=== PATIENT | female | born 1955 | race Caucasian/White ===

== ENCOUNTER 2020-10-03 21:13 | Emergency (ER) | payer OTHER ==
[~2020-10-03] VITALS: Ht 162.6 cm; Wt 65.8 kg
[2020-10-03 21:30] VITALS: BP 138/69
--- NOTE | 2020-10-03 21:30 | NUR ---
to bed # 12 biba from home with c/o bodyaches since yesterday
[2020-10-03] MEDS ORDERED: KETOROLAC 30 MG/ML VIAL IM ONE (21:35)
[2020-10-03] MEDS ORDERED: HYDROcodone/APAP 5/325 MG 1 TAB TAB PO ONE (21:35)
--- NOTE | 2020-10-03 21:35 | NUR ---
medicated as per ermds order, tolerated well.
--- NOTE | 2020-10-03 22:15 | NUR ---
PT HAS HX OF RA ONLY TAKES OTC MEDS, LAST FEW DAYS THE PAIN HAS BECOME UNBEARABLE, UNABLE TO AMBULATE WITHOUT ASSITANCE. PT STATES ENTIRE BODY IS VERY PAINFUL. DENIES SOB, AFEBRILE. BED IN LOWEST POSITION, LOCKED AND SIDERAIL UP X 1. NKA HX - HTN, COPD, RA
--- NOTE | 2020-10-03 22:19 | NUR ---
PT STILL C/O 06/21 PAIN, MD BURGOS AWARE AND SPEAKING WITH PT
[2020-10-03] MEDS ORDERED: MORPHINE SULFATE 4 MG/ML SYR IM ONE (22:20)
--- NOTE | 2020-10-04 | NUR ---
Patient discharged with v/s stable. Written and verbal after care instructions given and explained. Patient alert, oriented and verbalized understanding of instructions. Ambulatory with steady gait. All questions addressed prior to discharge. ID band removed. Patient advised to follow up with PMD. Rx of norco and naprosyn given. Patient educated on indication of medication including possible reaction and side effects. Opportunity to ask questions provided and answered.
== END 2020-10-03 23:00 | disposition home or self-care (01) ==
LOC: MED 21:13
DX: M06.89 Other specified rheumatoid arthritis, multiple sites (principal); F17.210 Nicotine dependence, cigarettes, uncomplicated; Z71.6 Tobacco abuse counseling
CPT/HCPCS: 71045; 96372; 99284; J1885; J2270

== ENCOUNTER 2020-11-14 08:31 | Emergency (ER) | payer OTHER, MEDICAID ==
[~2020-11-14] VITALS: Ht 162.6 cm; Wt 75.7 kg
[2020-11-14 08:37] VITALS: BP 205/102
[2020-11-14] MEDS ORDERED: hydrALAZINE 20 MG/ML VIAL IVP ONE (08:45)
[2020-11-14] MEDS ORDERED: NACL 0.9% 1,000 ML IV SCH (08:45)
[2020-11-14] MEDS ORDERED: ONDANSETRON 4 MG/2 ML VIAL IVP ONE (08:45)
[2020-11-14] MEDS ORDERED: MORPHINE SULFATE 4 MG/ML SYR IVP ONE (08:45)
[2020-11-14 08:59] LABS: BASOPHILS # (AUTO) 0.1 K/uL (0.00-0.22); BASOPHILS % (AUTO) 1.5 % (0.0-2.0); EOSINOPHILS # (AUTO) 0.2 K/uL (0-0.4); EOSINOPHILS % (AUTO) 3.3 % (0.0-4.0); HEMATOCRIT 38.9 % (36-48); HEMOGLOBIN 12.8 g/dL (12.0-16.0); LYMPHOCYTES # (AUTO) 1.4 K/uL (2.5-16.5); LYMPHOCYTES % (AUTO) 21.7 % (20.5-51.1); MEAN CORPUSCULAR HEMOGLOBIN 29 pg (27-31); MEAN CORPUSCULAR HGB CONC 33 g/dL (33-37); MEAN CORPUSCULAR VOLUME 87.4 fL (80-94); MONOCYTES # (AUTO) 0.5 K/uL (0.8-1.0); MONOCYTES % (AUTO) 7.9 % (1.7-9.3); NEUTROPHILS # (AUTO) 4.3 K/uL (1.8-7.7); NEUTROPHILS % (AUTO) 65.6 % (42.2-75.2); PLATELET COUNT (AUTO) 279 K/uL (140-450); RED BLOOD CELL COUNT(AUTO) 4.45 MIL/uL (4.20-5.40); RED CELL DISTRIBUTION WIDTH 14.8 % (11.6-13.7); WHITE BLOOD COUNT (AUTO) 6.6 K/uL (4.8-10.8)
[2020-11-14 09:05] LABS: APPEARANCE,URINE CLEAR (CLEAR); BILIRUBIN,URINE NEGATIVE (NEGATIVE); BLOOD, URINE 2+ (NEGATIVE); COLOR,URINE YELLOW (YELLOW); LEUKOCYTE ESTERASE ,URINE NEGATIVE (NEGATIVE); NITRITE, URINE NEGATIVE (NEGATIVE); PH,URINE 6.5 (5.0-9.0); UGLUCOSE NEGATIVE (NEGATIVE)
[2020-11-14 09:16] LABS: ALBUMIN 3.5 g/dL (3.4-5.0); TOTAL BILIRUBIN 0.3 mg/dL (0.0-1.0)
[2020-11-14 09:30] LABS: RBC,URINE 11-20 (MOD) /HPF (0-5); WBC,URINE 0-5 /HPF (0-5)
[2020-11-14] MEDS ORDERED: ACET-9527 PO (10:01)
[2020-11-14] MEDS ORDERED: NAPR-1704 PO (10:01)
[2020-11-14] MEDS ORDERED: LISI1TAB45 PO (10:03)
[2020-11-14 10:10] VITALS: BP 165/72
== END 2020-11-14 10:10 | disposition home or self-care (01) ==
LOC: MED 08:31
DX: S32.019A Unspecified fracture of first lumbar vertebra, initial encounter for closed fracture (principal); R91.1 Solitary pulmonary nodule; I10 Essential (primary) hypertension; J44.9 Chronic obstructive pulmonary disease, unspecified; X58.XXXA Exposure to other specified factors, initial encounter; Y93.89 Activity, other specified; Y92.89 Other specified places as the place of occurrence of the external cause; Y99.8 Other external cause status
CPT/HCPCS: 36415; 74176; 80053; 81001; 83690; 85025; 96361; 96374; 96375; 99284; J0360; J2270; J2405; J7030

== ENCOUNTER 2020-11-19 10:02 | Emergency (ER) | payer OTHER, MEDICAID ==
[~2020-11-19] VITALS: Ht 165.1 cm; Wt 65.8 kg
[~2020-11-19 10:02] MED LIST: ACET-9527 PO; LISI1TAB45 PO; NAPR-1704 PO
[2020-11-19 10:10] VITALS: BP 169/81
--- NOTE | 2020-11-19 10:17 | NUR ---
65 Y/O F C/O PAINFUL BACK RASH THAT BEGAN ABOUT 5 DAYS AGO. DESCRIBES PAIN BURNING STINGING. DENIES N/V. RAISED RASH WITH SMALL PAPULES NOTED ON RIGHT SIDE OF BACK WITH THREE AFFECTED AREAS. SKIN INTACT. PATIENT STATES RASH IS ITCHY AND BURNING. HAS BEEN TAKING NORCO FOR BACK PAIN AND BACK RASH. PMH: RA, COPD, HTN NKDA
[2020-11-19] MEDS ORDERED: KETOROLAC 60 MG/2 ML VIAL IM ONE (10:20)
[2020-11-19] MEDS ORDERED: ACYC800T1 PO (10:25)
[2020-11-19] MEDS ORDERED: HYDR-5080 PO (10:25)
[2020-11-19] MEDS ORDERED: ACYC5OIN TP (10:25)
[2020-11-19 10:52] VITALS: BP 169/81
--- NOTE | 2020-11-19 10:53 | NUR ---
Patient discharged with v/s stable. Written and verbal after care instructions given and explained. Patient alert, oriented and verbalized understanding of instructions. Ambulatory with steady gait. All questions addressed prior to discharge. ID band removed. Patient advised to follow up with PMD. Rx of ACYCLOVIR, NORCO given. Patient educated on indication of medication including possible reaction and side effects. Opportunity to ask questions provided and answered.
== END 2020-11-19 10:53 | disposition home or self-care (01) ==
LOC: MED 10:02
DX: B02.9 Zoster without complications (principal); M54.9 Dorsalgia, unspecified; J44.9 Chronic obstructive pulmonary disease, unspecified; I10 Essential (primary) hypertension; F17.210 Nicotine dependence, cigarettes, uncomplicated
CPT/HCPCS: 96372; 99283; J1885

== ENCOUNTER 2021-11-30 16:26 | Emergency (ER) | payer OTHER, MEDICAID ==
[~2021-11-30] VITALS: Ht 162.6 cm; Wt 73.0 kg
[~2021-11-30 16:26] MED LIST changes: +ACYC5OIN TP; +HYDR-5080 PO; +[UNRECOGNIZED DRUG - CODE] PO
[2021-11-30 16:33] VITALS: BP 139/81
--- NOTE | 2021-11-30 16:39 | NUR ---
Patient ambulated to bed 5.
[2021-11-30] MEDS ORDERED: cephALEXin 500 MG CAP PO ONE (17:10)
[2021-11-30] MEDS ORDERED: ACETAMINOPHEN EXTRA STRENGTH 500 MG TAB PO ONE (17:10)
--- NOTE | 2021-11-30 17:42 | NUR ---
PATIENT TAKEN TO RAD VIA WHEELCHAIR
--- NOTE | 2021-11-30 18:00 | NUR ---
PATIENT BROUGHT BACK TO BED VIA WHEELCHAIR
[2021-11-30] MEDS ORDERED: BACTO TP (18:35)
[2021-11-30] MEDS ORDERED: NAPR-54 PO (18:35)
[2021-11-30] MEDS ORDERED: CEPH-588 PO (18:35)
[2021-11-30 19:40] VITALS: BP 135/78
--- NOTE | 2021-11-30 19:40 | NUR ---
Patient discharged with v/s stable. Written and verbal after care instructions ABOUT WOUND INFECTION given and explained. Patient alert, oriented and verbalized understanding of instructions. Ambulatory with steady gait. All questions addressed prior to discharge. ID band removed. Patient advised to follow up with PMD. Rx of BACTROBAN, KEFLEX, AND NAPROSYN given.
== END 2021-11-30 19:40 | disposition home or self-care (01) ==
LOC: MED 16:26
DX: S91.301A Unspecified open wound, right foot, initial encounter (principal); J44.9 Chronic obstructive pulmonary disease, unspecified; I10 Essential (primary) hypertension; Z79.899 Other long term (current) drug therapy; X58.XXXA Exposure to other specified factors, initial encounter; Y93.89 Activity, other specified; Y92.89 Other specified places as the place of occurrence of the external cause; Y99.8 Other external cause status
CPT/HCPCS: 73660; 99283

== ENCOUNTER 2022-04-05 12:48 | Emergency (ER) | payer OTHER, MEDICAID ==
[~2022-04-05] VITALS: Ht 162.6 cm; Wt 69.4 kg
[~2022-04-05 12:48] MED LIST changes: +BACTO TP; +CEPH-588 PO; +NAPR-54 PO
[2022-04-05 12:53] VITALS: BP 143/78
--- NOTE | 2022-04-05 12:58 | NUR ---
AMBULATED TO BED 9
--- NOTE | 2022-04-05 12:59 | NUR ---
67 Y/O FEMALE BIB SELF C/O OF RIGHT KNEE PAIN, STATES THAT WHEN SHE WALKS SHE FEELS LIKE HER "BONES ARE CRACKING", NO REDNESS NO SWELLING NOTED ON THE AREA, DENIES ANY TRAUMA/INJURY. PER PT SHE HASNT BEEN ABLE TO TAKE HER MEDICATION FOR RA FOR "MONTHS" NKA PMH: COPD, RA
--- NOTE | 2022-04-05 13:18 | NUR ---
RAD AT BEDSIDE
[2022-04-05] MEDS ORDERED: KETOROLAC 30 MG/ML VIAL IM ONE (14:30)
[2022-04-05] MEDS ORDERED: MORPHINE SULFATE 4 MG/ML SYR IM ONE (14:30)
--- NOTE | 2022-04-05 14:47 | NUR ---
DR FULTON AT BEDSIDE
--- NOTE | 2022-04-05 15:13 | NUR ---
DR FULTON AT [facility] Addendum: 04/05/22 at 1513 by DYLAN ISIDRO SHERMAN OF THE RIGHT KNEE
[2022-04-05] MEDS ORDERED: PRED20TA5 PO (15:28)
--- NOTE | 2022-04-05 15:36 | NUR ---
Patient discharged with v/s stable. Written and verbal after care instructions ABOUT ARTHRITIS AND KNEE EFFUSION given and explained. Patient alert, oriented and verbalized understanding of instructions. Ambulatory with steady gait. All questions addressed prior to discharge. ID band removed. Patient advised to follow up with PMD. Rx of PREDNISONE given. Patient educated on indication of medication including possible reaction and side effects. Opportunity to ask questions provided and answered.
[2022-04-05 15:37] VITALS: BP 141/67
== END 2022-04-05 15:36 | disposition home or self-care (01) ==
LOC: MED 12:48
DX: M25.461 Effusion, right knee (principal); M06.9 Rheumatoid arthritis, unspecified
CPT/HCPCS: 73562; 96372; 99284; J1885; J2270; Q0092

== ENCOUNTER 2022-05-25 12:12 | Emergency (ER) | payer OTHER, MEDICAID ==
[~2022-05-25] VITALS: Ht 162.6 cm; Wt 71.2 kg
[~2022-05-25 12:12] MED LIST changes: +PRED20TA5 PO
[2022-05-25 12:19] VITALS: BP 121/63
--- NOTE | 2022-05-25 12:20 | NUR ---
PT AMBULATED TO LOBBY
--- NOTE | 2022-05-25 12:31 | NUR ---
67 Y/O FEMALE BIB SELF REQUESTING MEDICATION REFILL FOR PREDNISONE FOR RIGHT KNEE PAIN, DENIES TRAUMA INJURY, CHRONIC PAIN NKA PMH: ARTHRITIS, COPD, HTN
[2022-05-26] MEDS ORDERED: PRED20TA5 PO (11:31)
[2022-05-26] MEDS ORDERED: ACET-8386 PO (11:31)
== END 2022-05-25 14:04 | disposition left against medical advice (07) ==
LOC: MED 12:12
DX: M25.561 Pain in right knee (principal); Z53.21 Procedure and treatment not carried out due to patient leaving prior to being seen by health care provider

== ENCOUNTER 2022-05-26 09:50 | Emergency (ER) | payer OTHER, MEDICAID ==
[~2022-05-26] VITALS: Ht 162.6 cm; Wt 68.5 kg
[2022-05-26 09:58] VITALS: BP 122/67
--- NOTE | 2022-05-26 10:05 | NUR ---
BIB SELF C/O 8/10 RIGHT KNEE PAIN X 1 MONTH. PMH: ARTHRITIS, HTN, COPD
[2022-05-26] MEDS ORDERED: PRED20TA5 PO (11:31)
[2022-05-26] MEDS ORDERED: ACET-8386 PO (11:31)
[2022-05-26] MEDS ORDERED: KETOROLAC 30 MG/ML VIAL ONE (11:47)
[2022-05-26] MEDS ORDERED: KETOROLAC 30 MG/ML VIAL IM ONE (11:50)
[2022-05-26 12:04] VITALS: BP 122/67
--- NOTE | 2022-05-26 12:04 | NUR ---
Patient discharged with v/s stable. Written and verbal after care instructions ABOUT OSTEOARTHRITIS given and explained. Patient alert, oriented and verbalized understanding of instructions. Ambulatory with steady gait. All questions addressed prior to discharge. ID band removed. Patient advised to follow up with PMD. Rx of NORCO 5-325, DELTASONE, WRITTEN RX FOR WALKER GIVEN given. Patient educated on indication of medication including possible reaction and side effects. Opportunity to ask questions provided and answered.
== END 2022-05-26 12:04 | disposition home or self-care (01) ==
LOC: MED 09:50
DX: M17.11 Unilateral primary osteoarthritis, right knee (principal); Z71.6 Tobacco abuse counseling; J44.9 Chronic obstructive pulmonary disease, unspecified; I10 Essential (primary) hypertension; F17.210 Nicotine dependence, cigarettes, uncomplicated; Z79.899 Other long term (current) drug therapy; Z79.891 Long term (current) use of opiate analgesic; Z79.1 Long term (current) use of non-steroidal anti-inflammatories (NSAID); Z79.2 Long term (current) use of antibiotics
CPT/HCPCS: 96372; 99283; J1885